=== PATIENT | female | born 1985 | race Caucasian/White ===

== ENCOUNTER → 2022-01-26 | Outpatient (CLI) | payer SELFPAY ==
[2022-01-26 17:22] LABS: Absolute Lymphocyte Count 1.55 X10^3/uL (0.83-4.51); Absolute Neutrophil Count 7.8 X10^3/uL (2.0-7.7); Basophil# 0.03 X10^3/uL; Basophil% 0.3 % (0-1); Hematocrit 34.3 % (37-47); Hemoglobin 11.4 g/dL (12.0-15.0); Lymphocyte # 1.55 X10^3/ul (0.83-4.51); Lymphocyte % 15.2 % (19-41); Mean Corp Hgb Conc 33.2 g/dL (32-36); Mean Corpuscular Hgb 30.2 pg (27.0-32.0); Mean Corpuscular Volume 90.7 fL (81-99); Mean Platelet Vol. 11.2 fl (6.2-12.0); Monocyte# 0.68 X10^3/uL; Monocyte% 6.7 % (0-10); NRBC Flagged by Analyzer 0 % (0-5); Neutrophil # 7.79 X10^3/uL (2.7-7.7); Neutrophil % 76.1 % (47-70); Platelet Count 206 K/mm3 (150-450); RBC Distribution Width CV 12.4 % (11.6-14.6); RBC Distribution Width SD 40.7 fl (35.1-43.9); Red Blood Count 3.78 M/mm3 (4.2-5.4); White Blood Count 10.2 K/mm3 (4.4-11.0)
[2022-01-26 18:23] LABS: HIV - WCH Non-Reactive (Nonreactive); Hepatitis B Surface Antigen Non-Reactive (Nonreactive); Hepatitis C Antibody Non-Reactive (Nonreactive); Rubella IgG Reactive (Nonreactive); Syphilis Antibodies Non-reactive
[2022-01-29 07:08] LABS: Chlamydia By Nucleic Acid AMP Negative (Negative); Gonococcus By Nucleic Acid AMP Negative (Negative)
[2022-01-29 17:11] LABS: V-Zoster IgG (Immunity) 609 index (Immune >165)
[2022-02-03 17:49] LABS: HPV APTIMA, High Risk Negative (Negative)
== END | disposition home or self-care (01) ==
PROVIDERS: PCP Family Medicine; Visit Provider Obstetrics & Gynecology
DX: Z34.81 Encounter for supervision of other normal pregnancy, first trimester (principal); Z12.4 Encounter for screening for malignant neoplasm of cervix; Z11.3 Encounter for screening for infections with a predominantly sexual mode of transmission
CPT/HCPCS: 36415; 85025; 86703; 86762; 86780; 86787; 86803; 87086; 87088; 87340; 87491; 87591; 87624; 88175; G0145

== ENCOUNTER → 2022-03-02 | Outpatient (CLI) | payer SELFPAY ==
[2022-03-02 15:23] LABS: Glucose Challenge Gest 1H 50g 172 mg/dL (70-140)
== END | disposition home or self-care (01) ==
LOC: WOBLAB 14:38
PROVIDERS: PCP Family Medicine; Visit Provider Obstetrics & Gynecology
DX: Z34.81 Encounter for supervision of other normal pregnancy, first trimester (principal)
CPT/HCPCS: 36415; 82950

== ENCOUNTER → 2022-05-05 | Outpatient (CLI) | payer SELFPAY | END | disposition home or self-care (01) | LOC: LABSPEC 10:22 | PROVIDERS: PCP Family Medicine; Visit Provider Obstetrics & Gynecology | DX: R30.0 Dysuria (principal) | CPT/HCPCS: 87086; 87088 ==

== ENCOUNTER → 2022-06-18 | Outpatient (CLI) | payer SELFPAY | END | disposition home or self-care (01) | LOC: WOBLAB 10:04 | PROVIDERS: PCP Family Medicine; Visit Provider Obstetrics & Gynecology | DX: Z34.82 Encounter for supervision of other normal pregnancy, second trimester (principal) | CPT/HCPCS: 36415; 86850 ==

== ENCOUNTER → 2022-08-14 | Outpatient (CLI) | payer SELFPAY ==
[2022-08-14 16:48] LABS: Hematocrit 31.4 % (37-47); Hemoglobin 10.4 g/dL (12.0-15.0); Mean Corp Hgb Conc 33.1 g/dL (32-36); Mean Corpuscular Volume 99.7 fL (81-99); Mean Platelet Vol. 11.3 fl (6.2-12.0); Platelet Count 141 K/mm3 (150-450); RBC Distribution Width CV 14.2 % (11.6-14.6); RBC Distribution Width SD 51.4 fl (35.1-43.9); Red Blood Count 3.15 M/mm3 (4.2-5.4); White Blood Count 7.1 K/mm3 (4.4-11.0)
[2022-08-14 17:19] LABS: Syphilis Antibodies Non-reactive
== END | disposition home or self-care (01) ==
PROVIDERS: PCP Family Medicine; Visit Provider Nurse Practitioner Women's Health
DX: Z34.83 Encounter for supervision of other normal pregnancy, third trimester (principal)
CPT/HCPCS: 36415; 85027; 86780; 87081

== ENCOUNTER 2022-09-02 07:03 | Inpatient (IN) | payer SELFPAY ==
[2022-09-02] VITALS (16 sets, daily range): BP systolic 94–118; BP diastolic 48–73; PULSE 75–94; RESP 15–19; TEMP 36.4–36.8; O2SAT 94–99; BMI 22.8
[2022-09-02] MEDS: Lactated Ringers 1,000 ML 50 ML IV (07:50)
[2022-09-02 08:18] LABS: Absolute Lymphocyte Count 1.12 X10^3/uL (0.83-4.51); Absolute Neutrophil Count 6.2 X10^3/uL (2.0-7.7); Basophil# 0.03 X10^3/uL; Basophil% 0.4 % (0-1); Eosinophil# 0.08 X10^3/uL; Hematocrit 33.3 % (37-47); Hemoglobin 11.3 g/dL (12.0-15.0); Lymphocyte # 1.12 X10^3/ul (0.83-4.51); Lymphocyte % 13.5 % (19-41); Mean Corp Hgb Conc 33.9 g/dL (32-36); Mean Corpuscular Hgb 33.5 pg (27.0-32.0); Mean Corpuscular Volume 98.8 fL (81-99); Mean Platelet Vol. 11.6 fl (6.2-12.0); Monocyte# 0.69 X10^3/uL; Monocyte% 8.3 % (0-10); NRBC Flagged by Analyzer 0 % (0-5); Neutrophil # 6.23 X10^3/uL (2.7-7.7); Neutrophil % 75.2 % (47-70); Platelet Count 152 K/mm3 (150-450); RBC Distribution Width CV 13.7 % (11.6-14.6); Red Blood Count 3.37 M/mm3 (4.2-5.4); White Blood Count 8.3 K/mm3 (4.4-11.0)
--- NOTE | 2022-09-02 08:24 | PCM.HP.BLA ---
History and Physical Date of Admission: 09/02/22 Chief complaint: Induction of labor gestational diabetes History present illness: 37-year-old G3, P1 at 39 weeks and 2 days with DARCIE 09/07/2022 arrives for induction of labor with gestational diabetes. Denies headache, vision changes, chest pain, shortness of breath, nausea vomit, right upper quadrant pain. Patient states good movement. is complicated by GDM A1, gestational thrombocytopenia, AMA Obstetric history: G1: 40-week male G2: SAB G3: Current Past medical history: None Medications: vitamin Allergies: No known drug allergies Past surgical history: Laparoscopy Social history: Denies smoking, alcohol use, drug use Family history: Denies history DVT or PE Review of systems: Besides above pertinent positives a full review of systems was performed and found to be negative Physical exam: Vitals: Blood pressure 114/70 pulse 85 temperature 98.0 ?F SPO2 98% on room air General: Normal-appearing no acute distress HEENT: Normocephalic/atraumatic no cervical lymphadenopathy Cardiac/respiratory: No use accessory muscles, nonlabored breathing Abdomen: Soft, nontender, gravid Pelvic exam: Cervical exam 3/60/-3. AROM clear fluid Extremities: No peripheral edema normal peripheral pulses Psych: Normal affect normal demeanor nonpressured speech Labs: White blood cell count 8.3 hemoglobin 11.3 hematocrit 33.3% platelets 152 Bedside ultrasound: Cephalic Assessment and plan: 37-year-old G3, P1 at 39 weeks and 2 days with induction of labor for gestational diabetes Admit labor and delivery CEFM AROM clear fluid. To start Pitocin in 30 minutes to 1 hour Pitocin GBS negative GDM A1: We will continue to monitor blood sugars Gestational thrombocytopenia: Previously with platelets below 150 now today above 150 reassuring Routine orders
[2022-09-02 09:04] LABS: Syphilis Antibodies Non-reactive
[2022-09-02 09:10] LABS: Bedside Glucose 97 mg/dL (74-106)
[2022-09-02 09:57] LABS: Bedside Glucose 71 mg/dL (74-106)
--- NOTE | 2022-09-02 10:19 | PCM.PN.OB ---
Subjective Subjective Patient in operating room slightly nervous but overall doing well feeling some contractions Objective Data Objective Data Vital Signs: Vital Signs Temp Pulse BP Pulse Ox 98.0 F 78 103/56 L 98 09/02/22 07:39 09/02/22 08:46 09/02/22 08:46 09/02/22 07:39 Weight: 129 lb 3.054 oz Body Mass Index (BMI) 22.8 Lab / Micro Data Result Diagrams: 09/02/22 07:52 Labs: Laboratory Results - last 24 hr 09/02/22 07:52: WBC 8.3, RBC 3.37 L, Hgb 11.3 L, Hct 33.3 L, MCV 98.8, MCH 33.5 H, MCHC 33.9, RDW Std Deviation 49.0 H, RDW Coeff of Geno 13.7, Plt Count 152, MPV 11.6, Immature Gran % (Auto) 1.600 H, Neut % (Auto) 75.2 H, Lymph % (Auto) 13.5 L, [place] % (Auto) 8.3, Eos % (Auto) 1.0, Baso % (Auto) 0.4, Absolute Neuts (auto) 6.2, Absolute Lymphs (auto) 1.12, Nucleated RBC % 0 09/02/22 07:52: Blood Type A NEGATIVE, Antibody Screen POSITIVE 09/02/22 07:52: Syphilis Total Ab Non-reactive 09/02/22 08:24: POC Glucose 97 09/02/22 09:34: POC Glucose 71 L Physical Exam Const alert, oriented x3, average body habitus, healthy appearing and well nourished HEENT normocephalic and moist oral mucous membranes Eyes PERRL Neck full ROM Resp normal respiratory effort, no retractions and no use of accessory muscles GI GI Narrative: Nontender, gravid Narrative: Cervical exam: 60/-3 Extremity normal to inspection and full ROM Psych mental status grossly normal, affect normal, speech normal and activity/motor behavior normal Assessment & Plan (1) : PLAN: Called by nursing with prolonged deceleration, informed by nursing OB ERT called overhead. Arrived to labor and delivery and notified by nursing heart tones now with normal baseline. Arrived to operating room with above findings. Deceleration approximately 45 minutes in the 60s. Cervical exam as above. Educated patient on findings and discussed options including vaginal delivery versus epidural now and vaginal delivery anticipated versus primary section elective risk benefits alternatives discussed. Patient had long conversation with myself and with partner, all questions answered. Patient elects for primary section elective. Patient understands risk of the procedure include but are not limited to visceral or vascular injury, prolonged hospitalization, blood loss need for transfusion, reoperation. Patient state understanding wish to proceed. All questions were answered and consent was signed. Educated patient on postoperative recovery and differences between vaginal delivery and section in terms of recovery. Patient and partner state understanding wish to proceed. For section now notified anesthesia. For 2 g Ancef and 500 mg of azithromycin. For section now with heart tones recovered to cancel OB ERT.
[2022-09-02] MEDS: Acetaminophen 500 MG Tablet 1000 MG PO ×3 (10:30→22:47)
[2022-09-02] MEDS: Sodium Citrate/Citric Acid 30 ML UDC PO (10:30)
[2022-09-02] MEDS: Lactated Ringers 1,000 ML 999 ML IV ×2 (10:30→20:22)
[2022-09-02] MEDS: Cefazolin 2 GM in 0.9% Normal Saline 100 ML IV (10:36)
--- NOTE | 2022-09-02 11:40 | OP.PCM_ITS ---
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 True knot noted in the umbilical cord. Normal uterus, tubes, and ovaries. Consent: Patient elects for primary section Via Pfannenstiel incision. Patient understands risk of the procedure include but are not limited to visceral or vascular injury, prolonged hospitalization, blood loss need for transfusion, reoperation. Patient state understanding wish to proceed. All questions were answered and consent was signed. Procedure: Patient was brought back to the OR where spinal anesthesia was found to be adequate. 2 g of Ancef and 500 mg of azithromycin were given for infection prophylaxis. Patient was prepared and draped in a supine position with leftward tilt. A Pfannenstiel incision was made at the skin with a scalpel. The incision was carried down to the fascia with a scalpel. The fascia was excised and extended laterally. Rectus muscle was dissected at the midline down to the level of the pubic symphysis. Preperitoneal fatty tissue was noted and peritoneum was entered bluntly. Peritoneum was extended superiorly and inferiorly with good visualization of bladder. Bladder blade was inserted and vesicouterine peritoneum was identified. Low transverse hysterotomy was made. Hand was placed into the incision and gentle fundal pressure was applied once the head was brought into the incision and the bladder blade was removed. Head and shoulders were delivered with ease. Cord was clamped and cut. Baby handed off to nursing. Above findings were noted in the umbilical cord. Placenta was delivered via cord traction and fundal massage. IV oxytocin was initiated in order to facilitate uterine contractions. Uterus was exteriorized and wiped out with dry laparotomy sponge in order to remove remaining placental membranes. Uterus was closed in a continuous running fashion. [id number]-[id number]'s were used along with the Bovie to achieve hemostasis. Good hemostasis was noted. Uterus was placed back in the abdominal cavity and the incision was reinspected, good hemostasis was noted. Liliana was placed over the hysterotomy incision. Good hemostasis was noted. Fascia was closed in a continuous running fashion with PDS suture. Subcutaneous irrigation was performed and good hemostasis was noted. Skin was closed in a subcuticular fashion. Good hemostasis was noted. All counts were correct x2. Patient tolerated procedure well and was brought to recovery in stable condition.
[2022-09-02] MEDS: Oxytocin 15 Units/NS 250ml 15 UNITS/250 ML IV.SOLN 83 UNITS IV (12:08)
[2022-09-02 12:46] LABS: Bedside Glucose 112 mg/dL (74-106)
[2022-09-02] MEDS: Methylergonovine 0.2 MG/ML Ampul IM (13:10)
[2022-09-02 14:00] LABS: Bedside Glucose 53 mg/dL (74-106)
[2022-09-02] MEDS: Ketorolac 30 MG/ML Syringe IV ×2 (14:19→20:23)
[2022-09-02] MEDS: Lactated Ringers 1,000 ML 100 ML IV (14:52)
[2022-09-02] MEDS: Ondansetron 4 MG/2 ML Vial IV (17:38)
--- NOTE | 2022-09-02 18:22 | NURSING ---
Pt becomes nauseous and vomits every time she tries to sit up - BP checked and stable - unable to ambulate at this time - pt attempting to hold food down now.
[2022-09-03 00:45] VITALS: BP 88/41; PULSE 70; RESP 15; TEMP 36.9; O2SAT 98
[2022-09-03] MEDS: Ketorolac 30 MG/ML Syringe IV ×2 (02:03→08:20)
[2022-09-03] MEDS: Enoxaparin 40 MG/0.4 ML Syringe SC (02:05)
[2022-09-03 03:36] VITALS: BP 87/50; PULSE 76; RESP 14; TEMP 36.8; O2SAT 98
[2022-09-03 04:20] LABS: Bedside Glucose 87 mg/dL (74-106)
[2022-09-03 04:33] LABS: Hematocrit 23.8 % (37-47); Hemoglobin 8.3 g/dL (12.0-15.0); Mean Corp Hgb Conc 34.9 g/dL (32-36); Mean Corpuscular Hgb 34.2 pg (27.0-32.0); Mean Corpuscular Volume 97.9 fL (81-99); Mean Platelet Vol. 10.9 fl (6.2-12.0); Platelet Count 135 K/mm3 (150-450); RBC Distribution Width CV 13.6 % (11.6-14.6); Red Blood Count 2.43 M/mm3 (4.2-5.4); White Blood Count 11.7 K/mm3 (4.4-11.0)
[2022-09-03] MEDS: Acetaminophen 500 MG Tablet 1000 MG PO ×3 (04:43→17:54)
[2022-09-03 08:14] VITALS: BP 91/55; PULSE 76; RESP 18; TEMP 36.9; O2SAT 97
[2022-09-03] MEDS: 0.9% Saline Lock 10 ML Syringe IV (08:20)
[2022-09-03] MEDS: Senna/Docusate Sodium 1 Tablet PO (08:21)
--- NOTE | 2022-09-03 08:37 | DCINST_ITS ---
Discharge Instructions Diet Discharge Diet: No restrictions Activity Discharge Activity: Return to Normal Activity, May Drive, May Shower and - (No tub baths for 2 weeks) May resume sexual activity in: 6-8 weeks Lifting Restrictions: No lifting over 25 pounds for 2 to 3 weeks Dressing / Incision Call your doctor if your incision/area has: Continuous Slow Oozing and Foul Smelling Discharge Call your doctor if you observe: Fever of 101 or Higher, Shortness of breath and Chest pain Follow Up Care Please Follow Up With: Mauro Robles MD When: 2 weeks postoperatively Test Results: Test results from this visit will be discussed in further detail at your follow- up appointment, if applicable. Discharge Plan Admission Admit Date/Time: 09/02/22 07:03 Primary Reason for Your Visit: Induction of labor Attending Provider: Mauro Robles Primary Care Provider: Darrian Ivy Instructions Additional Instructions / Restrictions: Regular diet. Okay to shower. No tub baths for 2 weeks. No intercourse for 4 to 6 weeks. No lifting over 25 pounds for 2 to 3 weeks. Call if fevers, chills, chest pain, shortness of breath. Follow-up 2 weeks postoperatively Discharge Orders/Prescriptions Prescriptions: New oxycodone 5 mg tablet 5 mg PO Q6H PRN (Reason: pain (scale score 7-10)) 4 Days Qty: 16 0RF Continued ferrous sulfate [Iron (ferrous sulfate)] 325 mg (65 mg iron) Tablet 325 mg PO DAILY prenat.vits,soledad,wea-kris-aomod Tablet 1 tab DAILY Referrals / Follow Up: Darrian Ivy MD [Primary Care Provider] -
--- NOTE | 2022-09-03 08:38 | PN.OBGYN_ITS ---
Subjective Subjective No overnight complaints, feels much improved. Denies headache, vision change, weakness, dizziness Objective Data Objective Data Vital Signs: Vital Signs Temp Pulse Resp BP Pulse Ox O2 Del Method 98.4 F 76 18 91/55 L 97 Room Air 09/03/22 08:14 09/03/22 08:14 09/03/22 08:14 09/03/22 08:14 09/03/22 08:14 09/03/22 03:36 Oxygen Delivery Method Room Air Weight: 129 lb 3.054 oz Body Mass Index (BMI) 22.8 Intake & Output: Intake and Output for Last 24 Hours 09/01/22 09/02/22 09/03/22 23:59 23:59 23:59 Intake Total 1700.20 / 1700.20 1923.33 / 1923.33 Output Total 3285 / 3285 800 / 800 Balance -1584.80 / -1584.80 1123.33 / 1123.33 Lab / Micro Data Result Diagrams: 09/03/22 04:26 Labs: Laboratory Results - last 24 hr 09/02/22 07:52: Blood Type A NEGATIVE, Antibody Screen POSITIVE, Antibody Identification ANTI-D 09/02/22 07:52: Syphilis Total Ab Non-reactive 09/02/22 08:24: POC Glucose 97 09/02/22 09:34: POC Glucose 71 L 09/02/22 12:22: POC Glucose 112 H 09/02/22 13:37: POC Glucose 53 L 09/02/22 16:55: Screen NEGATIVE, Baby's Blood Type A POSITIVE, Baby's JULIANE NEGATIVE 09/03/22 04:02: POC Glucose 87 09/03/22 04:26: WBC 11.7 H, RBC 2.43 L, Hgb 8.3 L, Hct 23.8 L, MCV 97.9, MCH 34.2 H, MCHC 34.9, RDW Std Deviation 49.0 H, RDW Coeff of Geno 13.6, Plt Count 135 L, MPV 10.9 Physical Exam Const alert, oriented x3, no apparent distress, average body habitus, healthy appearing and well nourished HEENT normocephalic and moist oral mucous membranes Eyes PERRL Neck full ROM Resp normal respiratory effort, no retractions and no use of accessory muscles GI GI Narrative: Soft, nontender, bandage clean dry and intact Extremity normal to inspection, full ROM and no clubbing, cyanosis or edema Neuro moves all extremities and no focal motor deficits Psych mental status grossly normal, affect normal, speech normal and activity/motor behavior normal Assessment & Plan (1) delivery delivered: PLAN: Postop day 1 status post elective primary section. Breast- feeding. Pain well controlled. Acute on chronic anemia, patient now asymptomatic feels much improved ambulating with ease overall vital signs stable pulse within normal limits and blood pressure appears within range of what previous trend was prior to surgery. Educated patient on anemia and need to continue to take vitamin and iron. GDM A1, will continue to monitor blood sugars . 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
[2022-09-03 12:00] VITALS: BP 90/44; PULSE 84; RESP 18; TEMP 36.8
[2022-09-03] MEDS: Ibuprofen 600 MG Tablet PO (15:58)
[2022-09-03 16:54] VITALS: BP 91/55; PULSE 85; RESP 16; TEMP 36.7; O2SAT 97
== END 2022-09-03 18:40 | disposition home or self-care (01) | DRG 787 ==
PROVIDERS: Admitting Provider Obstetrics & Gynecology; PCP Family Medicine; Referring Provider Obstetrics & Gynecology; Visit Provider Obstetrics & Gynecology
DX: O24.429 Gestational diabetes mellitus in childbirth, unspecified control (principal); O99.12 Other diseases of the blood and blood-forming organs and certain disorders involving the immune mechanism complicating childbirth; D69.6 Thrombocytopenia, unspecified; O76 Abnormality in fetal heart rate and rhythm complicating labor and delivery; Z3A.39 39 weeks gestation of pregnancy; Z37.0 Single live birth
CPT/HCPCS: 59025; 59050; 76815; 82962; 85025; 85027; 85461; 86780; 86850; 86870; 86900; 86901; 99221; 99252; J7120; A4216; G0378; G0463; J2405; J2790

== ENCOUNTER → 2022-09-16 | Outpatient (CLI) | payer SELFPAY ==
[2022-09-16 14:24] LABS: Absolute Neutrophil Count 4.2 X10^3/uL (2.0-7.7); Basophil# 0.07 X10^3/uL; Basophil% 1.1 % (0-1); Eosinophil# 0.19 X10^3/uL; Eosinophils% 2.9 % (0-5); Hematocrit 33.4 % (37-47); Hemoglobin 10.5 g/dL (12.0-15.0); Lymphocyte % 25.6 % (19-41); Mean Corp Hgb Conc 31.4 g/dL (32-36); Mean Corpuscular Hgb 32.1 pg (27.0-32.0); Mean Corpuscular Volume 102.1 fL (81-99); Mean Platelet Vol. 10.3 fl (6.2-12.0); Monocyte# 0.44 X10^3/uL; Monocyte% 6.6 % (0-10); NRBC Flagged by Analyzer 0 % (0-5); Neutrophil # 4.19 X10^3/uL (2.7-7.7); Neutrophil % 63.2 % (47-70); Platelet Count 319 K/mm3 (150-450); RBC Distribution Width CV 12.7 % (11.6-14.6); Red Blood Count 3.27 M/mm3 (4.2-5.4); White Blood Count 6.6 K/mm3 (4.4-11.0)
[2022-09-16 14:41] LABS: T4 Free Direct 1.16 ng/dL (0.76-1.46); Thyroid Stim Hormone (TSH) 0.19 uIU/mL (0.358-3.74)
== END | disposition home or self-care (01) ==
LOC: WOBLAB 11:50
PROVIDERS: PCP Family Medicine; Visit Provider Obstetrics & Gynecology
DX: Z48.816 Encounter for surgical aftercare following surgery on the genitourinary system (principal)
CPT/HCPCS: 36415; 84439; 84443; 85025